=== PATIENT | female | born 1975 | race Caucasian/White ===

== ENCOUNTER 2016-11-30 15:57 | Emergency (ER) | payer BC ==
[2016-11-30 16:30] VITALS: BP 110/67
--- NOTE | 2016-11-30 16:56 | UC ---
Ear Complaint HPI - HPI Summary HPI Summary: complaint of left ear pain for approx 3 days last night started to have an intermittent fever, exhausted her entire body feels achy left side of throat is painful slight nasal congestion and sinus pressure for 2 days took some tylenol with some relief - History of Current Complaint Chief Complaint: UCEar Stated Complaint: EAR ACHE,BODY ACHES Time Seen by Provider: 11/30/16 16:46 Hx Obtained From: Patient Hx Last Menstrual Period: November 16 - Allergies/Home Medications Allergies/Adverse Reactions: Allergies Allergy/AdvReac Type Severity Reaction Status Date / Time Aspirin AdvReac See Comment Verified 05/11/16 18:21 Home Medications: Home Medications Acetaminophen [Tylenol] 11/30/16 [History] PMH/Surg Hx/FS Hx/Imm Hx Previously Healthy: Yes Endocrine History Of: Denies: Diabetes, Thyroid Disease Cardiovascular History Of: Denies: Cardiac Disorders, Hypertension Respiratory History Of: Denies: COPD, Asthma GI/ History Of: Denies: Ulcer - Surgical History Surgical History: None - Family History Known Family History: Negative: Cardiac Disease, Hypertension, Diabetes - Social History Occupation: Employed Full-time Lives: With Family Alcohol Use: None Substance Use Type: None Smoking Status (MU): Light Every Day Tobacco Smoker Type: Cigarettes Amount Used/How Often: 1/2 PPD Review of Systems Constitutional: Fever, Fatigue Skin: Negative Eyes: Negative ENT: Sore Throat, Ear Ache, Nasal Discharge Respiratory: Negative Cardiovascular: Negative Gastrointestinal: Negative Genitourinary: Negative Motor: Negative Neurovascular: Negative Musculoskeletal: Negative Neurological: Headache Psychological: Negative All Other Systems Reviewed And Are Negative: Yes Physical Exam Triage Information Reviewed: Yes Appearance: No Pain Distress, Well-Nourished Vital Signs: Initial Vital Signs Temp 98.1 F 11/30/16 16:23 Pulse 60 11/30/16 16:23 Resp 16 11/30/16 16:23 BP 110/67 11/30/16 16:23 Pulse Ox 100 11/30/16 16:23 Vital Signs Reviewed: Yes Eyes: Positive: Conjunctiva Clear ENT: Positive: Pharyngeal erythema, Nasal congestion, Nasal drainage, TMs normal. Negative: TM bulging, TM red Neck: Positive: No Lymphadenopathy Respiratory: Positive: Lungs clear, Normal breath sounds, No respiratory distress Cardiovascular: Positive: RRR, No Murmur, Pulses Normal Abdomen Description: Positive: Nontender, Soft Bowel Sounds: Positive: Present Musculoskeletal: Positive: No Edema Neurological Exam: Normal Psychological Exam: Normal Skin Exam: Normal Ear Complaint Course/Dx - Differential Dx/Diagnosis Differential Diagnosis/HQI/PQRI: Otitis Media, Pharyngitis, URI, Other - strep Provider Diagnoses: viral illness, eustachion tube dysfunction Discharge - Discharge Plan Condition: Stable Disposition: HOME Patient Education Materials: Fever in Adults (ED), Earache (ED) Referrals: No Primary Care Phys,NOPCP [Primary Care Provider] - [facility] [place] [facility] REFERRAL [Outside] Additional Instructions: Please start flonase as directed Increase fluids and rest Take acetaminophen or ibuprofen for fever or pain Please review your discharge instructions. If your symptoms do not improve please call your primary care provider or return to urgent care.
== END 2016-11-30 17:26 | disposition home or self-care (01) ==
LOC: UCEAST 15:57
DX: B34.9 Viral infection, unspecified (principal); H69.92 Unspecified Eustachian tube disorder, left ear; Z88.6 Allergy status to analgesic agent; F17.210 Nicotine dependence, cigarettes, uncomplicated
CPT/HCPCS: 87651; 99202; G0463